=== PATIENT | female | born 2000 | race African-American/Black ===

== ENCOUNTER 2020-10-17 18:23 | Emergency (ER) | payer MEDICAID ==
[~2020-10-17] VITALS: Ht 175.3 cm; Wt 91.6 kg
[2020-10-17 18:33] VITALS: Ht 175.3 cm; Wt 91.6 kg
[2020-10-17 20:12] VITALS: BP 110/71
== END 2020-10-17 20:12 | disposition home or self-care (01) ==
LOC: ED 18:23
DX: N39.0 Urinary tract infection, site not specified (principal)
CPT/HCPCS: 87491; 87591; J0696

== ENCOUNTER 2020-10-31 12:57 | Emergency (ER) | payer MEDICAID ==
[~2020-10-31] VITALS: Ht 167.6 cm; Wt 77.1 kg
[2020-10-31 13:42] VITALS: BP 112/65; Ht 167.6 cm; Wt 77.1 kg
== END 2020-10-31 14:19 | disposition home or self-care (01) ==
LOC: ED 12:57
DX: T59.91XA Toxic effect of unspecified gases, fumes and vapors, accidental (unintentional), initial encounter (principal); J45.909 Unspecified asthma, uncomplicated; Y92.89 Other specified places as the place of occurrence of the external cause